=== PATIENT | male | born 1995 | race Caucasian/White ===

== ENCOUNTER 2018-10-04 19:08 | Observation (INO) | payer OTHER ==
[2018-10-04] MEDS ORDERED: ONDANSETRON 4 MG/2 ML VIAL IVP ONE (19:33)
[2018-10-04] MEDS ORDERED: NS 1,000 ML IV ONE (19:33)
[2018-10-04 19:53] LABS: PLATELET COUNT 286 10^3/uL (150-400)
--- NOTE | 2018-10-04 20:06 | EDPHY ---
H & P Stated Complaint: RUQ ABD PAIN VOMIT X 4/SINCE 1600 Time Seen by Provider: 10/04/18 19:32 HPI/ROS: CHIEF COMPLAINT: Right lower quadrant pain, vomiting HISTORY OF PRESENT ILLNESS: 23-year-old male presents with right lower quadrant pain and vomiting. Onset of generalized abdominal pain this morning. The pain migrated to the right lower quadrant at 1:00 p.m.. The pain is moderate and persistent. Associated with multiple episodes of vomiting. No known fever. No prior abdominal surgery. REVIEW OF SYSTEMS: complete 10 point ROS reviewed and is negative except for the noted elements in the HPI - Personal History Current Tetanus Diphtheria and Acellular Pertussis (TDAP): Yes - Medical/Surgical History Hx Asthma: No Hx Chronic Respiratory Disease: No Hx Diabetes: No Hx Cardiac Disease: No Hx Renal Disease: No Hx Cirrhosis: No Hx Alcoholism: No Hx HIV/AIDS: No Hx Splenectomy or Spleen Trauma: No Other PMH: pericarditis - Social History Smoking Status: Never smoked Alcohol Use: Sober Drug Use: None - Physical Exam Exam: General Appearance: Alert, pleasant Eyes: Pupils equal and round, no conjunctival pallor or injection ENT, Mouth: Mucous membranes moist Neck: Normal inspection Respiratory: Lungs are clear to auscultation Cardiovascular: Regular rate and rhythm Gastrointestinal: Abdomen is soft, right lower quadrant tenderness Neurological: A&O, nonfocal, normal gait Skin: Warm and dry, no rash Extremities: Normal inspection Psychiatric: Mood and affect normal Constitutional: Initial Vital Signs Temperature (C) 36.7 C 10/04/18 19:16 Heart Rate 90 10/04/18 19:16 Respiratory Rate 18 10/04/18 19:16 Blood Pressure 143/80 H 10/04/18 19:16 O2 Sat (%) 100 10/04/18 19:16 O2 Delivery Mode Room Air Allergies/Adverse Reactions: No Known Allergies Allergy (Verified 10/01/16 14:17) Home Medications: Medication Instructions Recorded Penicillin V Potassium [Pen Vk 500 mg PO Q6H 10/04/18 500mg (*)] Ibuprofen [Motrin (*)] 600 mg PO Q6H #30 tab 10/05/18 oxyCODONE/APAP 5/325 [Percocet 1 - 2 tab PO Q4 PRN #20 tab 10/05/18 5/325 (*)] Medical Decision Making - Diagnostics Imaging Results: RLQ Sono read by Dr. Malloy: acute appendicitis Imaging: Discussed imaging studies w/ direct marketing analyst Radiologist, I viewed and interpreted images myself ED Course/Re-evaluation: This patient presents right lower quadrant pain and vomiting. Concerning for acute appendicitis. Labs/ultrasound ordered. IV normal saline 1 L, morphine and Zofran IV given. Right lower quadrant ultrasound reveals acute appendicitis. Results d/w pt. Ceftriaxone and Flagyl IV given. Dr. Radha Najera was consulted and will see the patient in the ER. Differential Diagnosis: Differential diagnosis includes though it is not limited to appendicitis, cholecystitis, diverticulitis, pyelonephritis, bowel perforation, small bowel obstruction. - Data Points Laboratory Results: Laboratory Results 10/04/18 19:44 10/04/18 19:44 Medications Given: Discontinued Medications Bupivacaine HCl (Sensorcaine 0.5% Vial) Confirm Administered Dose 30 ml .ROUTE .STK-MED ONE Stop: 10/04/18 21:48 Last Admin: 10/04/18 22:50 Dose: 20 ml Cefazolin Sodium (Ancef Syringe) Confirm Administered Dose 2 gm .ROUTE .STK-MED ONE Stop: 10/04/18 21:48 Last Admin: 10/04/18 23:07 Dose: Not Given Sodium Chloride (Ns) 1,000 mls @ 0 mls/hr IV EDNOW ONE; Wide Open PRN Reason: Protocol Stop: 10/04/18 19:34 Last Admin: 10/04/18 19:49 Dose: 1,000 mls Ceftriaxone Sodium/Dextrose (Rocephin 1 Gm (Premix)) 50 mls @ 100 mls/hr IV EDNOW ONE PRN Reason: Protocol Stop: 10/04/18 21:21 Last Admin: 10/04/18 21:18 Dose: 50 mls Metronidazole/Sodium Chloride (Flagyl 500 Mg (Premix)) 100 mls @ 100 mls/hr IV EDNOW ONE PRN Reason: Protocol Stop: 10/04/18 21:51 Last Admin: 10/04/18 21:41 Dose: 100 mls Lactated Ringer's (Lr) 1,000 mls @ 0 mls/hr IV ONCE ONE PRN Reason: KVO Stop: 10/04/18 22:24 Last Admin: 10/04/18 23:34 Dose: 1,000 mls Ceftriaxone Sodium/Dextrose (Rocephin 1 Gm (Premix)) 50 mls @ 100 mls/hr IV DAILY COLE PRN Reason: Protocol Stop: 11/04/18 08:59 Last Admin: 10/05/18 08:27 Dose: 50 mls Potassium Chloride/Dextrose/Sod Cl (D5w 1/2 Ns W/ 20 Kcl/L) 1,000 mls @ 100 mls /hr IV CONT COLE Stop: 04/02/19 23:29 Last Admin: 10/05/18 01:14 Dose: 1,000 mls Influenza Virus Vaccine Quadrival (Flulaval Quad 1002-2349 (6mo+)) 0.5 ml IM .ONCE ONE Stop: 10/05/18 10:15 Last Admin: 10/05/18 12:29 Dose: Not Given Midazolam HCl (Versed) 2 mg IVP ONCALL ONE Stop: 10/04/18 22:21 Last Admin: 10/04/18 22:39 Dose: 2 mg Morphine Sulfate (Morphine) 4 mg IVP EDNOW ONE Stop: 10/04/18 20:36 Last Admin: 10/04/18 20:44 Dose: 4 mg Ondansetron HCl (Zofran) 4 mg IVP EDNOW ONE Stop: 10/04/18 19:34 Last Admin: 10/04/18 19:50 Dose: 4 mg Departure - Departure Disposition: [facility] Inpatient Acute Clinical Impression: Acute appendicitis Qualifiers: Acute appendicitis type: with localized peritonitis Appendicitis gangrene presence: without gangrene Appendicitis perforation presence: without perforation Appendicitis abscess presence: without abscess Qualified Code(s): K35.30 - Acute appendicitis with localized peritonitis, without perforation or gangrene Condition: Good
[2018-10-04] MEDS ORDERED: BUPIVACAINE 0.5% 30 ML SDV ONE (21:47)
[2018-10-04] MEDS ORDERED: ceFAZolin 1 GM/5 ML SYR ONE (21:47)
[2018-10-04] MEDS ORDERED: LIDOCAINE 2% 5 ML SDV ONE (21:57)
[2018-10-04] MEDS ORDERED: ONDANSETRON 4 MG/2 ML VIAL ONE (21:57)
[2018-10-04] MEDS ORDERED: KETOROLAC 30 MG/1 ML SDV ONE (21:57)
[2018-10-04] MEDS ORDERED: ROCURONIUM 50 MG/5 ML VIAL ONE (21:57)
[2018-10-04] MEDS ORDERED: DEXAMETHASONE 4 MG/ML VIAL ONE (21:57)
[2018-10-04] MEDS ORDERED: PROPOFOL 200 MG/20 ML VIAL ONE (21:58)
[2018-10-04] MEDS ORDERED: fentaNYL 100 MCG/2 ML INJ ONE (21:58)
[2018-10-04] MEDS ORDERED: MIDAZOLAM 2 MG/2 ML VIAL IVP ONE (22:20)
[2018-10-04] MEDS ORDERED: LR 1,000 ML IV ONE (22:23)
--- NOTE | 2018-10-04 22:30 | PDANEPAE ---
ANE History of Present Illness appy ANE Past Medical History - Cardiovascular History Hx Hypertension: No Hx Arrhythmias: No Hx Chest Pain: No Hx Coronary Artery / Peripheral Vascular Disease: No Hx CHF / Valvular Disease: No Hx Palpitations: No Cardiovascular History Comment: pericarditis 3years ago - Pulmonary History Hx COPD: No Hx Asthma/Reactive Airway Disease: No Hx Recent Upper Respiratory Infection: No Hx Oxygen in Use at Home: No Hx Sleep Apnea: No - Endocrine History Hx Diabetes: No Hypothyroid: No Hyperthyroid: No Obesity: no - Renal History Hx Renal Disorders: No - Liver History Hx Hepatic Disorders: No - Neurological & Psychiatric Hx Hx Neurological and Psychiatric Disorders: No - GI History GERD: mild ANE Review of Systems Review of Systems: - Exercise capacity Exercise capacity: >=4 METS ANE Patient History - Allergies Allergies/Adverse Reactions: No Known Allergies Allergy (Verified 10/01/16 14:17) - Home Medications Home medications: home medication list seen and reviewed Home Medications: Penicillin V Potassium [Pen Vk 500mg (*)] 500 mg PO Q6H 10/04/18 [Last Taken 05/16 13:00] - NPO status NPO Since - Liquids (Date): 10/04/18 NPO Since - Liquids (Time): 18:00 NPO Since - Solids (Date): 10/04/18 NPO Since - Solids (Time): 18:00 - Anes Hx Anes Hx: no prior problems - Smoking Hx Smoking Status: Never smoked - Alcohol Use Alcohol Use: Sober ANE Labs/Vital Signs - Labs Result Diagrams: 10/04/18 19:44 10/04/18 19:44 - Vital Signs Blood Pressure: 131/83 Heart Rate: 90 Respiratory Rate: 16 O2 Sat (%): 98 Height: 185.42 cm Weight: 84.822 kg ANE Physical Exam - Airway Mallampati Score: Class 2 Mouth exam: normal dental/mouth exam - Pulmonary Pulmonary: no respiratory distress - Cardiovascular Cardiovascular: regular rate and rhythym - ASA Status ASA Status: II, E ANE Anesthesia Plan Anesthesia Plan: general endotracheal anesthesia
[2018-10-04] MEDS ORDERED: SUCCINYLCHOLINE CHLORIDE 200 MG/10 ML SYR IVP ONE (22:32)
[2018-10-04] MEDS ORDERED: MIDAZOLAM 2 MG/2 ML VIAL ONE (22:33)
[2018-10-04] MEDS ORDERED: SUGAMMADEX SODIUM 200 MG/2 ML VIAL IVP ONE (23:03)
[2018-10-04] MEDS ORDERED: NALOXONE HCL 0.4 MG/ML INJ IVP PRN (23:06)
[2018-10-04] MEDS ORDERED: HYDROmorphONE/DILAUDID 2 MG/ML INJ IVP PRN (23:06)
[2018-10-04] MEDS ORDERED: ALBUTEROL 3 ML DEYVIAL IH PRN (23:06)
[2018-10-04] MEDS ORDERED: ONDANSETRON 4 MG/2 ML VIAL IVP PRN ×2 (23:06→23:24)
[2018-10-04] MEDS ORDERED: LR 500 ML IV PRN (23:06)
--- NOTE | 2018-10-04 23:20 | POSTOPPROG ---
Post Op Note Date of Operation: 10/04/18 Surgeon: Jw Najera Anesthesiologist: CARLOS Anesthesia: GET(General Endotracheal) Pre-op Diagnosis: ACUTE APPENDICITIS Post-op Diagnosis: SAME Indication: PAIN Procedure: LAP APPE Findings: ACUTE APPE Inf/Abcess present in the surg proc area at time of surgery?: Yes Depth: Organ Space EBL: Minimal Complications: 0 Specimen(s): APPENDIX
[2018-10-04] MEDS ORDERED: OXYCODONE/APAP 5/325 TAB PO PRN (23:24)
[2018-10-04] MEDS ORDERED: HYDROmorphONE/DILAUDID 1 MG/ML INJ IVP PRN (23:24)
--- NOTE | 2018-10-04 23:27 | POSTANESTH ---
Post Anesthetic Evaluation Cardiovascular Status: Normal, Stable Respiratory Status: Normal, Stable Level of Consciousness/Mental Status: Can Participate in Eval Pain Control: Adequate, Prn Tx Ordered Nausea/Vomiting Control: Adequate, Prn Tx Ordered Complications Possibly Related to Anesthesia: None Noted
[2018-10-04] MEDS ORDERED: D5W 1/2 NS W/ 20 KCl/L 1,000 ML IV SCH ×2 (23:30)
--- NOTE | 2018-10-04 23:30 | PDGENHP ---
History & Physical Chief Complaint: RLQ PAIN History of Present Illness: < 12 HRS OF RLQ PAIN WITH ANOREXIA AND NAUSEA, WORSE WITH MOVEMENT. US SHOWA 1.3 CM FAT APPENDIX. WBC 11K. RISKS AND OPTIONS FULLY DISCUSSED/ ADMIT FOR LAP APPE Pertinent Past, Social, Family History: PMH NEG. FAMHX NONCONTRIB. ROS NEG ON FULL 10 PT REVIEW. NKA. MEDS 0 Relevant Physical Exam: GEN: HEALTHY, 23 MALE, AFEBRILE. HEENT NONICTERIC, PERRLA, NO NODES. CHEST CLEAR. COR RR. ABD: SOFT, TENDER RLQ WITH GUARDING AND REBOUND/ NO HERNIAS. GEN OK. EXTREM OK. SKIN NO LESIONS OR RASHES Cardiorespiratory Assessment: IMP: ACUTE APPENDICITIS. PLAN LAP APPE/ RISKS AND OPTIONS FULLY DISCUSED AND HE WISHES TO PROCEED
[2018-10-05 07:57] VITALS: BP 102/61
--- NOTE | 2018-10-05 12:37 | GOP ---
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 ANESTHESIOLOGIST: Dr. Roy. PREOPERATIVE DIAGNOSIS: Acute appendicitis. POSTOPERATIVE DIAGNOSIS: Acute appendicitis. PROCEDURE PERFORMED: Laparoscopic appendectomy. FINDINGS: The patient was found to have acute suppurative nonperforated appendicitis with a markedly enlarged appendix. DESCRIPTION OF PROCEDURE: The patient taken to the operating room where he received satisfactory gen eral endotracheal anesthesia by Dr. Roy. He was placed in a supine position and prepped and drape d in the usual sterile fashion. A periumbilical incision was made. A Veress needle inserted. Pneum operitoneum was established. Trocar was introduced. Laparoscope introduced. Good visualization was obtained. Two other trocars placed in the lower abdomen under direct vision. The appendix was elev ated up. The mesoappendix was divided with the Harmonic Scalpel. The base was skeletonized. It was then divided with an Endo-AILYN stapler and placed in a specimen bag and extracted through the upper m idline port site. Hemostasis was assured. There was no significant fluid in the abdomen. Trocars r emoved under direct vision. Trocar sites were closed with 0 Vicryl for the fascia, 4-0 Monocryl subc uticular stitch for the skin. All layers infiltrated with 0.5% Marcaine. Blood loss negligible. Ta louie to recovery room in good condition. There were no complications. /[id number]/MODL
== END 2018-10-05 12:47 | disposition home or self-care (01) ==
LOC: F3E 23:50
PROVIDERS: ADMIT Surgery; ATTEND Surgery
PROC: 0DTJ4ZZ Resection of Appendix, Percutaneous Endoscopic Approach (ICD-10-PCS; principal; 2018-10-04 22:30)
DX: K35.80 Unspecified acute appendicitis (principal); E86.9 Volume depletion, unspecified
CPT/HCPCS: 44970; 76705; 96361; 96365; 96368; 96375; 96376; 99285; G0378; J0330; J0696; J1100; J1885; J2250; J2270; J2405; J2704; J3010